=== PATIENT | female | born 1980 | race Caucasian/White ===

== ENCOUNTER 2017-02-23 09:30 | Day surgery (SDC) | payer OTHER ==
[2017-02-22 11:18] VITALS: BMI 28.2
[2017-02-23] MEDS ORDERED: Midazolam HCl 2 mg/2 ml Vial ONE (10:27)
[2017-02-23] MEDS ORDERED: Scopolamine 1.5 mg/72 hour Patch ONE (10:28)
[2017-02-23] MEDS ORDERED: Propofol 200 MG/20 ML VIAL ONE (11:12)
[2017-02-23] MEDS ORDERED: Dexamethasone 20 MG/5 ML VIAL ONE (11:12)
[2017-02-23] MEDS ORDERED: Lidocaine 1% PF 5 ML VIAL ONE (11:12)
[2017-02-23] MEDS ORDERED: Ondansetron HCl/PF 4 MG/2 ML Vial ONE (11:12)
[2017-02-23] MEDS ORDERED: Fentanyl 100 MCG/2 ML VIAL ONE ×2 (11:19→12:48)
[2017-02-23] MEDS ORDERED: Propofol 500 MG/50 ML VIAL ONE (11:19)
[2017-02-23] MEDS ORDERED: Promethazine HCl 25 MG/ML VIAL ONE (12:51)
--- NOTE | 2017-02-23 14:20 | OP ---
DATE OF PROCEDURE: 02/23/2017 SURGEON: Dr. Erasmo Will PREOPERATIVE DIAGNOSES: 1. [place] syndrome and calcified styloid ligament. 2. Chronic tonsillitis. POSTOPERATIVE DIAGNOSES: 1. [place] syndrome and calcified styloid ligament. 2. Chronic tonsillitis. PROCEDURE PERFORMED: 1. Tonsillectomy over 12 years of age. 2. Resection of an excision of left styloid process. PROCEDURE IN DETAIL: After consent was obtained, the patient was identified, brought to the operating room, and placed on the operating table in the supine position. General endotracheal anesthesia and intravenous access was obtained and we proceeded with positioning the patient for oropharyngeal surg el. Oropharyngeal exposure was obtained with a Eriberto-Lyle mouth gag after a head drape was placed and secured with a towel clip. The Eriberto-Lyle mouth gag was then suspended from the [place] tray and p alatal elevation was achieved with a red rubber catheter. The right tonsil was addressed first. We used a curved Allis to grasp the tonsil and retract it medially as an anterior pillar incision was ma de with a #12 blade. The retrotonsillar fascial plane was then established and blunt dissection was performed with the suction cautery. Blood vessels were anticipated, identified, and cauterized as th ey were encountered. Ultimately, dissection was carried to the posterior tonsillar pillar mucosa whi ch was incised hemostatically, as well as the base of tongue connection. The tonsil was then passed off as a specimen and bleeding points within the tonsillar bed were cauterized under direct visualiza tion. We subsequently turned our attention to the contralateral side, where using a similar techniqu e, a near identical procedure was performed. Again, the tonsil was grasped and retracted medially wi th a curved Allis as an anterior pillar incision was made with a #12 blade. The retrotonsillar fasci al plane was established and while the anterior pillar was retracted medially, the hemostatic blunt d issection of the tonsil with a suction cautery was performed with blood vessels anticipated, identifi ed, and cauterized as they were encountered. Again, dissection continued to the base of tongue and p osterior tonsillar pillar mucosa which was incised in a hemostatic fashion. The tonsillar beds were then carefully inspected and bleeding points were identified and cauterized with a suction cautery. After this portion of the procedure, hemostasis was completely obtained. The patient's oral cavity w as copiously irrigated with iced saline and subsequently suctioned. We then used the red rubber cath eter to suction the gastric contents and the patient was subsequently aroused, awakened, and extubate d without difficulty and transported to the recovery room in stable condition. There were no complic ations. Following the tonsillectomy we palpated on the left side, the styloid bone. We then made an incision in the posterior pharyngeal constrictor and dissected down into the submuscular tissues and identifi ed the bone. The styloid ligament was transected from the tip of the bone using a [place] tip elec trocautery. We then freed any attachments muscular and soft tissue attachments to the styloid bone a nd was able to mobilize it from the skull base and delivered into the wound without injuring any seco ndary muscles or nerves or blood vessels. We then closed the posterior pharyngeal musculature after hemostasis was obtained. The patient was awakened and extubated, and taken to recovery where he marlon ined in stable condition prior to discharge home.
[2017-02-23] MEDS ORDERED: Hydrocodone-Acetamin 15 ML UDCUP ONE (14:44)
== END 2017-02-23 16:10 | disposition home or self-care (01) ==
LOC: SDC 09:30
PROVIDERS: ATTEND Specialist
DX: J35.01 Chronic tonsillitis (principal); M85.88 Other specified disorders of bone density and structure, other site; Z91.041 Radiographic dye allergy status; Z87.891 Personal history of nicotine dependence
CPT/HCPCS: 85014; 88304; 88311; 96374; J0131; J1100; J2001; J2250; J2405; J2550; J2704; J3010

== ENCOUNTER 2017-08-22 14:55 | Emergency (ER) | payer OTHER ==
[2017-08-22] MEDS ORDERED: Promethazine HCl 25 MG/ML VIAL ONE (15:17)
[2017-08-22 15:58] LABS: BHCG - Serum Negative (NEGATIVE); Pregs Control Background? CLEAR/WHITE (CLR/WHITE); Pregs Control Bar Appear? YES (CONTROL BAR)
[2017-08-22 16:06] LABS: ALT (SGPT) 18 U/L (8-55); AST (SGOT) 21 U/L (5-34); Albumin 4.2 g/dL (3.5-5.0); Alkaline Phosphatase 104 U/L (40-150); Anion Gap 16 mmol/L (10-20); BUN (Urea Nitrogen) 12 mg/dL (7.0-18.7); Bilirubin, Total 0.6 mg/dL (0.2-1.2); Calc. Creatinine Clearance 0 mL/min (70-130); Calcium 9.6 mg/dL (7.8-10.44); Carbon Dioxide 26 mmol/L (22-29); Chloride 105 mmol/L (98-107); Estimated GFR-MDRD 78; Globulin 3.1 g/dL (2.4-3.5); Glucose 80 mg/dL (70-105); Lipase 19 U/L (8-78); Potassium 3.5 mmol/L (3.5-5.1); Protein, Total 7.3 g/dL (6.0-8.3); Sodium 143 mmol/L (136-145)
[2017-08-22 16:13] LABS: Band 3 % (5-11); Eosinophils 1 % (0-10); Hemoglobin 12.8 g/dL (12.0-16.0); Lymphocytes 26 % (21-51); MDiff Complete? YES; Mean Corpuscular HGB CONC 34.3 g/dL (32.0-36.0); Mean Corpuscular Hemoglobin 30.3 pg (27.0-31.0); Mean Corpuscular Volume 88.2 fL (78.0-98.0); Mean Platelet Volume 6.9 fL (7.4-10.4); Monocytes 7 % (0-10); Neutrophil 61 % (42-75); PLT Morphology Comment Appears Adequate; Platelet Count 260 thou/uL (130-400); RBC Distribution Width 11.3 % (11.5-14.5); RBC Morphology Normal; Red Blood Cell (RBC) Count 4.24 mill/uL (4.20-5.40)
[2017-08-22 16:51] LABS: Bilirubin Negative (Negative); Blood, Urine Negative (Negative); Clarity Clear (Clear); Glucose, Urine (Dipstick) Negative (Negative); Leukocyte Negative (Negative); Nitrite Negative (Negative); Protein, Urine (Dipstick) Negative (Neg-Trace); Urobilinogen 0.2 mg/dL (0.2-1.0)
== END 2017-08-22 17:13 | disposition home or self-care (01) ==
LOC: SCSER 14:55
DX: R11.2 Nausea with vomiting, unspecified (principal); F32.9 Major depressive disorder, single episode, unspecified; Z79.899 Other long term (current) drug therapy
CPT/HCPCS: 80053; 81003; 83690; 84703; 85025; 96365; J2550

== ENCOUNTER 2017-10-26 09:13 | Day surgery (SDC) | payer OTHER ==
[2017-10-25 14:50] VITALS: BMI 28.2
[2017-10-26] MEDS ORDERED: Lidocaine 1% PF 5 ML VIAL ONE (10:24)
[2017-10-26] MEDS ORDERED: PROPOFOL 200 MG/20 ML VIAL ONE (10:24)
[2017-10-26] MEDS ORDERED: ePHEDrine/0.9% NaCl/PF SYRINGE 50 mg/10 ml ONE (10:24)
[2017-10-26] MEDS ORDERED: Ondansetron HCl/PF 4 MG/2 ML Vial ONE (10:24)
[2017-10-26] MEDS ORDERED: Dexamethasone 20 MG/5 ML VIAL ONE (10:24)
[2017-10-26] MEDS ORDERED: Scopolamine 1.5 mg/72 hour Patch ONE (10:24)
[2017-10-26] MEDS ORDERED: CEFAZOLIN/Water 2 GM/20 ML SYRINGE ONE (10:30)
[2017-10-26] MEDS ORDERED: Ketorolac Tromethamine 30 MG/ML VIAL ONE (10:30)
[2017-10-26 10:41] LABS: Hemoglobin 14.2 g/dL (12.0-16.0); Mean Corpuscular HGB CONC 32.9 g/dL (32.0-36.0); Mean Corpuscular Hemoglobin 31.1 pg (27.0-31.0); Mean Corpuscular Volume 94.5 fL (78.0-98.0); Mean Platelet Volume 7.1 fL (7.4-10.4); Platelet Count 262 thou/uL (130-400); RBC Distribution Width 11.2 % (11.5-14.5); Red Blood Cell (RBC) Count 4.58 mill/uL (4.20-5.40); White Blood Cell (WBC) Count 6.4 thou/uL (4.8-10.8)
[2017-10-26 10:56] LABS: BHCG - Serum Negative (NEGATIVE); Pregs Control Background? CLEAR/WHITE (CLR/WHITE); Pregs Control Bar Appear? YES (CONTROL BAR)
[2017-10-26 11:00] LABS: Anion Gap 15 mmol/L (10-20); BUN (Urea Nitrogen) 8 mg/dL (7.0-18.7); Calc. Creatinine Clearance 103 mL/min (70-130); Calcium 9.4 mg/dL (7.8-10.44); Carbon Dioxide 21 mmol/L (22-29); Chloride 107 mmol/L (98-107); Estimated GFR-MDRD 68; Glucose 84 mg/dL (70-105); Potassium 4.5 mmol/L (3.5-5.1); Sodium 138 mmol/L (136-145)
[2017-10-26] MEDS ORDERED: Lidocaine 2% Jelly 5 ML TUBE ONE (12:13)
[2017-10-26] MEDS ORDERED: Bupivacaine/Epinephrine 0.25% 30 ML VIAL ONE (12:13)
[2017-10-26] MEDS ORDERED: Midazolam HCl 2 mg/2 ml Vial ONE (12:17)
[2017-10-26] MEDS ORDERED: Fentanyl 100 MCG/2 ML VIAL ONE (12:19)
--- NOTE | 2017-10-27 14:11 | OP ---
DATE OF PROCEDURE: 10/26/2017 PREOPERATIVE DIAGNOSIS: Atypical 2.5 cm cystic lesion of left buttock. POSTOPERATIVE DIAGNOSIS: Atypical 2.5 cm cystic lesion of left buttock. PROCEDURE PERFORMED: Excision of 2.5 cm left buttock cyst with layered closure. SURGEON: Thiago Mabry M.D. ANESTHESIA: General with laryngeal mask airway. INDICATIONS: The patient is a 37-year-old white female. She presented with a persistent lesion on h er medial left buttock (several centimeters away from the anus and not apparently connected), which h as drained bloody material and become very painful on multiple occasions over the past several months . I recommend excision of this. DESCRIPTION OF OPERATION: Informed consent was obtained. The patient was taken to the operating steve m where general anesthesia obtained with the patient in supine position. She was then placed in dors al lithotomy position. The perineal and left buttocks area were prepped with Betadine and draped in sterile fashion. The ar ea was marked by visualization and palpation prior to infiltrating local anesthetic. I utilized 0.25 % with epinephrine. An elliptical vertical incision was created. Dissection was carried through ski n and subcutaneous tissue, ensuring the dissection was only within normal surrounding tissue. This s pecimen was removed and passed off the field. Hemostasis obtained with electrocautery. The wound wa s then closed in layers with 3-0 Vicryl and 3-0 Prolene. I applied Dermabond over the Prolene to hop efully seal this secondary to its proximity to the anus. Patient tolerated the procedure well and wa s taken to recovery room in stable condition.
--- NOTE | 2017-11-06 06:06 | PQF ---
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 Check the appropriate box and include in your discharge summary/addendum. [x ] ___I dictated an addendum with the lesion measurements [ ] [ ] Please check this box if this does not apply to this patient [ ] Unable to determine [ ] Other diagnosis/procedure: Review the following information and exercise your independent professional judgment in responding to the clarification. Based upon the clinical findings, risk factors, and treatment, please clarify if you are treating one of the above probable or suspected diagnoses. Physician Signature: MWS Date 11/06/17 Time MTDD
--- NOTE | 2017-11-06 09:06 | ADD-OP ---
ADDENDUM: DATE OF PROCEDURE: 10/26/2017 PRE AND POSTOPERATIVE DIAGNOSIS AND PROCEDURE: Unchanged. 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 The lesion was excised at about 2 cm transverse with about 1 mm ma rgins; therefore making about a 2.2 cm area of transverse excision. It was longer in the vertical di mension. The remainder of the operative report is unchanged.
== END 2017-10-26 15:35 | disposition home or self-care (01) ==
LOC: SDC 09:13
PROVIDERS: ATTEND Specialist
PROC: 0JB90ZZ Excision of Buttock Subcutaneous Tissue and Fascia, Open Approach (ICD-10-PCS; principal; 2017-10-26)
DX: L72.0 Epidermal cyst (principal); Z87.891 Personal history of nicotine dependence; Z79.899 Other long term (current) drug therapy; Z91.041 Radiographic dye allergy status
CPT/HCPCS: 36415; 80048; 84703; 85027; 88304; J0131; J1100; J1885; J2001; J2250; J2405; J2704; J3010

== ENCOUNTER 2018-04-02 15:44 | Outpatient (CLI) | payer OTHER ==
--- NOTE | 2018-04-12 08:57 | MMO ---
Bilateral MAMMO Bilat Screen [facility]. CLINICAL HISTORY: Patient is 37 years old and is seen for screening. The patient has the following family history of breast cancer: paternal grandmother. The patient has no personal history of cancer. VIEWS: The views performed were: bilateral craniocaudal and bilateral mediolateral oblique. FILMS COMPARED: The present examination has been compared to prior imaging studies performed at [facility] on 02/15/2006 and 02/24/2010. MAMMOGRAM FINDINGS: There are scattered fibroglandular densities. There are no suspicious masses, calcifications or areas of architectural distortion. IMPRESSION: THERE IS NO MAMMOGRAPHIC EVIDENCE OF MALIGNANCY. A ROUTINE FOLLOW-UP MAMMOGRAM IN 1 YEAR IS RECOMMENDED. THE RESULTS OF THIS EXAM WERE SENT TO THE PATIENT. ACR BI-RADS Category 1 - Negative MAMMOGRAPHY NOTE: 1. A negative mammogram report should not delay a biopsy if a dominant of clinically suspicious mass is present. 2. Approximately 10% to 15% of breast cancers are not detected by mammography. 3. Adenosis and dense breasts may obscure an underlying neoplasm.
== END 2018-04-02 15:45 | disposition home or self-care (01) ==
LOC: BICMAMMO 15:44
PROVIDERS: ATTEND Obstetrics & Gynecology
DX: Z12.31 Encounter for screening mammogram for malignant neoplasm of breast (principal); Z80.3 Family history of malignant neoplasm of breast
CPT/HCPCS: 77063; 77067

== ENCOUNTER 2018-07-27 08:31 | Outpatient (CLI) | payer OTHER ==
--- NOTE | 2018-07-27 11:15 | MRI ---
MRI RIGHT KNEE PERFORMED WITHOUT CONTRAST ENHANCEMENT: HISTORY: Right knee pain. FINDINGS: The anterior and posterior cruciate ligaments are intact. The medial and lateral menisci are normal in shape and appearance. The medial and lateral collateral ligaments and the iliotibial band regions appear unremarkable. Patellar articular cartilage is intact. The medial and lateral patellar retinaculum and the quadrice ps and patellar tendons are normal in appearance. No articular cartilage abnormalities. IMPRESSION: Unremarkable MRI of the right knee. POS: [facility]
== END 2018-07-27 08:32 | disposition home or self-care (01) ==
LOC: SCSMRI 08:31
PROVIDERS: ATTEND Orthopaedic Surgery
DX: M23.91 Unspecified internal derangement of right knee (principal)

== ENCOUNTER 2019-02-19 13:53 | Outpatient (CLI) | payer OTHER | END 2019-02-19 13:54 | disposition home or self-care (01) | LOC: DTY/OP 13:53 | PROVIDERS: ATTEND Surgery | DX: E66.01 Morbid (severe) obesity due to excess calories (principal) | CPT/HCPCS: 97802 ==

== ENCOUNTER 2019-03-12 08:52 | Inpatient (IN) | payer OTHER ==
[2019-03-11 08:47] VITALS: BMI 32.3
[2019-03-12] MEDS ORDERED: Heparin 5,000 UNITS/ML VIAL ONE (09:37)
[2019-03-12] MEDS ORDERED: Dexmedetomidine 200 MCG/2 ML VIAL ONE (10:38)
[2019-03-12] MEDS ORDERED: Fentanyl 250 MCG/5 ML VIAL ONE (10:38)
[2019-03-12] MEDS ORDERED: Midazolam HCl 2 mg/2 ml Vial ONE (10:49)
[2019-03-12] MEDS ORDERED: Scopolamine 1.5 mg/72 hour Patch ONE (10:49)
[2019-03-12] MEDS ORDERED: EPINEPHrine 1 MG/ML AMP ONE (11:10)
[2019-03-12] MEDS ORDERED: Bupivacaine 0.25% HCL 30 ML VIAL ONE (11:10)
[2019-03-12] MEDS ORDERED: SUGAMMADEX SODIUM 200 MG/2 ML VIAL ONE (11:19)
[2019-03-12] MEDS ORDERED: Promethazine HCl 25 MG/ML VIAL SLOW IVP PRN ×2 (11:47→16:12)
[2019-03-12] MEDS ORDERED: Ondansetron HCl/PF 4 MG/2 ML Vial IVP PRN (11:47)
[2019-03-12] MEDS ORDERED: Meperidine HCl/PF 25 MG/ML VIAL SLOW IVP PRN (11:47)
[2019-03-12] MEDS ORDERED: HYDROmorphone 2 MG/ML VIAL SLOW IVP PRN (11:47)
[2019-03-12] MEDS ORDERED: diphenhydrAMINE 50 MG/ML VIAL IVP PRN ×2 (12:49→13:29)
[2019-03-12] MEDS ORDERED: Ondansetron PF 4 MG/2 ML Vial IVP PRN ×2 (12:49→18:32)
[2019-03-12] MEDS ORDERED: hydrALAZINE 20 MG/ML VIAL SLOW IVP PRN (12:49)
[2019-03-12] MEDS ORDERED: Dextrose 50% Abboject 50 ML SYRINGE SLOW IVP PRN (12:49)
[2019-03-12] MEDS ORDERED: Promethazine HCl 25 MG/ML VIAL IM PRN ×2 (12:49→13:29)
[2019-03-12] MEDS ORDERED: Hydrocodone-Acetamin 15 ML UDCUP PO PRN ×2 (12:49→13:33)
[2019-03-12] MEDS ORDERED: Dextrose 5% in Water 1,000 ML IV PRN (12:49)
[2019-03-12] MEDS ORDERED: Sodium Chloride 0.9% (PF) 10 ML VIAL FS PRN (13:03)
[2019-03-12] MEDS ORDERED: fentaNYL Citrate/PF 2,000 MCG in Sodium Chloride 0.9% 60 ML IV PRN (13:29)
[2019-03-12] MEDS ORDERED: diphenhydrAMINE 50 MG/ML VIAL IM PRN (13:29)
[2019-03-12] MEDS ORDERED: Zolpidem Tartrate 5 MG TAB PO PRN (13:29)
[2019-03-12] MEDS ORDERED: Naloxone HCl 0.4 mg/ml Vial IV PRN (13:29)
[2019-03-12] MEDS ORDERED: diphenhydrAMINE 25 MG CAP PO PRN (13:29)
[2019-03-12] MEDS ORDERED: Ketorolac Tromethamine 30 MG/ML VIAL ONE (13:30)
[2019-03-12] MEDS ORDERED: Ondansetron PF 4 MG/2 ML Vial ONE ×2 (13:30→14:10)
[2019-03-12] MEDS ORDERED: Lidocaine 1% PF 5 ML VIAL ONE (13:30)
[2019-03-12] MEDS ORDERED: Rocuronium Bromide 10 MG/ML (10ML VIAL) ONE (13:30)
[2019-03-12] MEDS ORDERED: Dexamethasone 20 MG/5 ML VIAL ONE (13:30)
[2019-03-12] MEDS ORDERED: Communication Order-Pharmacy FS SCH (13:30)
[2019-03-12] MEDS ORDERED: PROPOFOL 200 MG/20 ML VIAL ONE (13:30)
[2019-03-12] MEDS ORDERED: Fentanyl 100 MCG/2 ML VIAL ONE (13:31)
[2019-03-12] MEDS ORDERED: Promethazine HCl 25 MG/ML VIAL ONE (13:59)
[2019-03-12] MEDS ORDERED: Promethazine HCl 12.5 MG in Sodium Chloride 0.9% 50 ML IVPB PRN (16:40)
[2019-03-12] MEDS: D5 1/2 NS w/20 mEq KCL 1,000 ML IV SCH ×2 (17:16→21:33)
[2019-03-12] MEDS: CEFAZOLIN 2 GM in Premix Bag 1 BAG IVPB SCH (17:57)
[2019-03-12] MEDS: Ketorolac Tromethamine 30 MG/ML VIAL IVP SCH ×2 (17:58→23:38)
[2019-03-12] MEDS ORDERED: Multivit, Adult Inj 10 ML VIAL IV SCH (18:45)
[2019-03-12] MEDS ORDERED: Sodium Chloride 0.9% 1,000 ML IV SCH (19:15)
[2019-03-12] MEDS ORDERED: Multivitamins, Adult 10 ML in Sodium Chloride 0.9% 500 ML IV SCH (20:00)
[2019-03-12] MEDS: Ondansetron PF 4 MG/2 ML Vial IVP PRN (20:43)
[2019-03-12] MEDS: Metoclopramide HCl 10 MG/2 ML VIAL IVP PRN (20:43)
[2019-03-13] MEDS: CEFAZOLIN 2 GM in Premix Bag 1 BAG IVPB SCH (01:46)
[2019-03-13] MEDS: D5 1/2 NS w/20 mEq KCL 1,000 ML IV SCH (05:21)
[2019-03-13] MEDS: Ketorolac Tromethamine 30 MG/ML VIAL IVP SCH ×2 (05:21→11:37)
[2019-03-13] MEDS: Metoclopramide HCl 10 MG/2 ML VIAL IVP PRN (05:26)
[2019-03-13] MEDS: Ondansetron PF 4 MG/2 ML Vial IVP PRN (05:26)
[2019-03-13 05:55] LABS: Anion Gap 11 mmol/L (10-20); BUN (Urea Nitrogen) 8 mg/dL (7.0-18.7); Calc. Creatinine Clearance 145 mL/min (70-130); Calcium 7.7 mg/dL (7.8-10.44); Carbon Dioxide 18 mmol/L (22-29); Chloride 111 mmol/L (98-107); Estimated GFR-MDRD 87; Glucose 105 mg/dL (70-105); Potassium 4.1 mmol/L (3.5-5.1); Sodium 136 mmol/L (136-145)
[2019-03-13 06:07] LABS: #Eosinphils 0.1 thou/uL (0.0-0.7); #Lymphocytes 1.8 thou/uL (1.20-3.40); #Monocytes 0.9 thou/uL (0.11-0.59); #Neutrophils 11.1 thou/uL (1.40-6.50); %Basophils 0.1 % (0.0-1.0); %Eosinophils 0.4 % (0.0-10.0); %Monocytes 6.7 % (0.0-10.0); %Neutrophils 79.9 % (42.0-75.0); Hemoglobin 12.7 g/dL (12.0-16.0); Mean Corpuscular HGB CONC 32.6 g/dL (32.0-36.0); Mean Platelet Volume 8.1 fL (7.4-10.4); Platelet Count 208 thou/uL (130-400); RBC Distribution Width 11.9 % (11.5-14.5); RBC Morphology Normal; Red Blood Cell (RBC) Count 3.98 mill/uL (4.20-5.40); White Blood Cell (WBC) Count 13.9 thou/uL (4.8-10.8)
--- NOTE | 2019-03-13 06:56 | PDOC.GSPN ---
Surgery Progress Note: Subj - Subjective Patient reports: pain well controlled, nausea (No vomiting. Nausea was better controlled last night with Zofran and Reglan.) Narrative: Mrs. Hicks is a 38 year old female, one day post-op from gastric sleeve. She was asleep upon entry. Surgery Progress Note: Obj - Vital signs Vital signs: Vital Signs - Most Recent Temp Pulse Resp BP Pulse Ox 98.3 F 72 18 111/72 95 03/13/19 03:34 03/13/19 03:34 03/13/19 03:34 03/13/19 03:34 03/13/19 03:34 - Physical Exam General: well developed, well nourished Cardiovascular: regular rate and rhythm Respiratory: normal expansion, normal respiratory effort Surgery Progress Note: Results - Labs Result Diagrams: 03/13/19 05:24 03/13/19 05:24 Lab results: Laboratory Results - last 24 hr 03/13/19 03/13/19 05:24 05:24 WBC 13.9 H RBC 3.98 L Hgb 12.7 Hct 39.0 MCV 98.0 MCH 32.0 H MCHC 32.6 RDW 11.9 Plt Count 208 MPV 8.1 Neutrophils % 79.9 H Lymphocytes % 13.0 L Monocytes % 6.7 Eosinophils % 0.4 Basophils % 0.1 Neutrophils # 11.1 H Lymphocytes # 1.8 Monocytes # 0.9 H Eosinophils # 0.1 Basophils # 0.0 RBC Morph Comment Normal Sodium 136 Potassium 4.1 Chloride 111 H Carbon Dioxide 18 L Anion Gap 11 BUN 8 Creatinine 0.74 Estimated GFR (MDRD) 87 Glucose 105 Calcium 7.7 L Surgery Progress Note: A/P - Plan Plan: Pt appears stable and improving. Pain well controlled. Give Zonfran and Reglan for nausea. Continue monitoring heart and respiratory wait. Encourage patient to walk more.
--- NOTE | 2019-03-13 08:16 | RAD ---
XR UGI Single Contrast No Air HISTORY: Status post vertical sleeve gastrectomy Post bariatric surgery evaluation Procedure: Single sip swallow study was performed with administration of 15 mL contrast under fluoros copy. FINDINGS: Contrast traverses the gastroesophageal junction. No leak or evidence of obstruction. IMPRESSION: Normal study.
[2019-03-13] MEDS ORDERED: Pantoprazole 40 MG VIAL IVP SCH (09:00)
[2019-03-13] MEDS ORDERED: Enoxaparin Sodium 40 MG/0.4 ML SYRINGE SC SCH (09:00)
--- NOTE | 2019-03-13 09:29 | OP ---
DATE OF PROCEDURE: 03/12/2019 PREOPERATIVE DIAGNOSIS: Morbid obesity. PROCEDURE PERFORMED: Laparoscopic sleeve gastrectomy with esophagogastroscopy. INDICATIONS: A 38-year-old female who has been overweight for many years, attempted multiple weight loss programs without success. FINDINGS: A 38-Luxembourger bougie used. DESCRIPTION OF PROCEDURE: After informed consent was obtained, the patient was taken to the operating room and given general endotracheal anesthesia and placed in supine position. The abdomen was prepped and draped in usual fashion. Local anesthesia was infiltrated subcutaneously and deep. A 12 mm incision was performed approximately 8 inches below the xiphoid slightly to the left. Veress needle was inserted. Drop test was performed. Pneumoperitoneum was created to a pressure of 15 mmHg. 0-degree laparoscope was inserted under direct vision. Jw liver retractor was inserted. Left lobe of the liver retracted superiorly. The pylorus was identified. A 12-mm port was placed on the right beneath it and two 12s placed left subcostal. The omentum was taken off the greater curvature, 5 cm from the pylorus utilizing the LigaSure. Short gastrics divided with LigaSure, and left crura defined with the LigaSure. A 38-Luxembourger bougie inserted, directed into the antrum. The linear 60 mm green load stapler was used to divide the antrum to the bougie, gold load along the bougie, and a series of blues through the angle of His. Intraoperative endoscopy was performed. The video endoscope was inserted under direct vision and advanced into the sleeve. The staple line was inspected. There was no bleeding. Staple line was then tested by inflating the new stomach with pressurized air under water. There was no air leak. Stomach decompressed. Scope removed. The remnant stomach was removed from the abdomen through the left lateral port site. Fascia was closed with 0 Vicryl suture and the GraNee needle. Trocars and retractors were removed. Hemostasis was assured. Skin was closed with interrupted 4-0 Rapide. Dermabond applied. The patient tolerated the procedure well, transferred to Recovery in good condition. Sponge and needle count verified correct x2. Job ID: [id number]
[2019-03-13] MEDS ORDERED: Hydrocodone-Acetamin 15 ML UDCUP PO PRN (11:16)
--- NOTE | 2019-03-13 11:52 | DIS ---
DATE OF ADMISSION: 03/12/2019 DATE OF DISCHARGE: 03/13/2019 DISCHARGE DIAGNOSIS: Morbid obesity. PROCEDURES DURING ADMISSION: 1. Laparoscopic sleeve gastrectomy. 2. Intraoperative esophagogastroscopy. 3. Postoperative Gastrografin swallow. HOSPITAL COURSE: The patient was admitted, taken to the operating room, where she underwent sleeve gastrectomy. She had excruciating nausea and dry heaves postoperatively despite all antiemetics we could find. Eventually that resolved. This morning, she had a Gastrografin swallow, which was fine. She is tolerating liquids well. She is discharged home on hydrocodone and Zofran. She will follow up with me in 2 weeks. Job ID: [id number]
[2019-03-13 12:14] VITALS: BP 115/69; TEMP 98.4
[2019-03-13] MEDS ORDERED: GASTROGRAFIN 30 ML BOT ONE (13:02)
== END 2019-03-13 14:05 | disposition home or self-care (01) | DRG 621 ==
LOC: SURG A 08:52
PROVIDERS: ADMIT Surgery; ATTEND Surgery
PROC: 0DB64Z3 Excision of Stomach, Percutaneous Endoscopic Approach, Vertical (ICD-10-PCS; principal; 2019-03-12)
PROC: 0DJ08ZZ Inspection of Upper Intestinal Tract, Via Natural or Artificial Opening Endoscopic (ICD-10-PCS; 2019-03-12)
DX: E66.01 Morbid (severe) obesity due to excess calories (principal); Z68.32 Body mass index [BMI] 32.0-32.9, adult; Z90.89 Acquired absence of other organs; Z87.891 Personal history of nicotine dependence; F32.9 Major depressive disorder, single episode, unspecified; F41.9 Anxiety disorder, unspecified
CPT/HCPCS: 36415; 74240; 80048; 85025; 88307; 88312; 94760; C9113; J0171; J0690; J1100; J1644; J1650; J1885; J2001; J2250; J2405; J2550; J2704; J2765; J3010; J7050; Q9963; S0020

== ENCOUNTER 2019-04-03 09:41 | Outpatient (CLI) | payer OTHER ==
--- NOTE | 2019-04-03 11:39 | MMO ---
Bilateral MAMMO Bilat Screen [facility]. CLINICAL HISTORY: Patient is 38 years old and is seen for screening. The patient has the following family history of breast cancer: paternal grandmother. The patient has no personal history of cancer. VIEWS: The views performed were: bilateral craniocaudal with tomosynthesis and bilateral mediolateral oblique with tomosynthesis. FILMS COMPARED: The present examination has been compared to prior imaging studies performed at [facility] on 04/02/2018, and at [facility] on 02/15/2006 and 02/24/2010. This study has been interpreted with the assistance of computer-aided detection. MAMMOGRAM FINDINGS: There are scattered fibroglandular densities. There are no suspicious masses, suspicious calcifications, or new areas of architectural distortion. IMPRESSION: THERE IS NO MAMMOGRAPHIC EVIDENCE OF MALIGNANCY. A ROUTINE FOLLOW-UP MAMMOGRAM IN 1 YEAR IS RECOMMENDED. THE RESULTS OF THIS EXAM WERE SENT TO THE PATIENT. ACR BI-RADS Category 1 - Negative MAMMOGRAPHY NOTE: 1. A negative mammogram report should not delay a biopsy if a dominant of clinically suspicious mass is present. 2. Approximately 10% to 15% of breast cancers are not detected by mammography. 3. Adenosis and dense breasts may obscure an underlying neoplasm. Reported by: SHASHANK MICHAEL MD Electonically Signed: [id number]
== END 2019-04-03 09:42 | disposition home or self-care (01) ==
LOC: BICMAMMO 09:41
PROVIDERS: ATTEND Obstetrics & Gynecology
DX: Z12.31 Encounter for screening mammogram for malignant neoplasm of breast (principal); Z80.3 Family history of malignant neoplasm of breast
CPT/HCPCS: 77063; 77067

== ENCOUNTER 2019-08-02 14:36 | Emergency (ER) | payer OTHER ==
[2019-08-02 15:08] LABS: #Basophils 0.1 thou/uL (0.0-0.2); #Eosinphils 0.1 thou/uL (0.0-0.7); #Monocytes 0.5 thou/uL (0.11-0.59); #Neutrophils 4.1 thou/uL (1.40-6.50); %Basophils 1.8 % (0.0-1.0); %Eosinophils 0.7 % (0.0-10.0); %Lymphocytes 38.4 % (21.0-51.0); %Monocytes 6.3 % (0.0-10.0); %Neutrophils 52.7 % (42.0-75.0); Hemoglobin 14.3 g/dL (12.0-16.0); Mean Corpuscular HGB CONC 32.8 g/dL (32.0-36.0); Mean Corpuscular Hemoglobin 31.4 pg (27.0-31.0); Mean Corpuscular Volume 95.5 fL (78.0-98.0); Mean Platelet Volume 8.7 fL (7.4-10.4); Platelet Count 274 thou/uL (130-400); RBC Distribution Width 12.2 % (11.5-14.5); Red Blood Cell (RBC) Count 4.56 mill/uL (4.20-5.40); White Blood Cell (WBC) Count 7.9 thou/uL (4.8-10.8)
[2019-08-02 15:24] LABS: BHCG - Serum Negative (NEGATIVE); Pregs Control Background? CLEAR/WHITE (CLR/WHITE); Pregs Control Bar Appear? YES (CONTROL BAR)
[2019-08-02 15:32] LABS: ALT (SGPT) 17 U/L (8-55); AST (SGOT) 22 U/L (5-34); Albumin 4.5 g/dL (3.5-5.0); Alkaline Phosphatase 86 U/L (40-110); Anion Gap 14 mmol/L (10-20); BUN (Urea Nitrogen) 9 mg/dL (7.0-18.7); Bilirubin, Total 0.3 mg/dL (0.2-1.2); Calc. Creatinine Clearance 0 mL/min (70-130); Calcium 9.6 mg/dL (7.8-10.44); Carbon Dioxide 27 mmol/L (22-29); Chloride 102 mmol/L (98-107); Estimated GFR-MDRD 74; Globulin 3.4 g/dL (2.4-3.5); Glucose 89 mg/dL (70-105); Lipase 31 U/L (8-78); Potassium 3.9 mmol/L (3.5-5.1); Protein, Total 7.9 g/dL (6.0-8.3); Sodium 139 mmol/L (136-145)
[2019-08-02] MEDS ORDERED: Ondansetron PF 4 MG/2 ML Vial ONE (16:10)
[2019-08-02] MEDS ORDERED: Morphine 4 MG/ML VIAL ONE ×2 (16:10→18:09)
[2019-08-02] MEDS ORDERED: Ketorolac Tromethamine 30 MG/ML VIAL ONE (16:10)
--- NOTE | 2019-08-02 16:59 | ULT ---
PELVIC ULTRASOUND: 08/02/19 Transabdominal and endovaginal ultrasound of pelvis performed. INDICATIONS: Pelvic pain. Clinical question of left ovarian torsion. FINDINGS: Uterus has a normal sonographic appearance. The endometrium is normal thickness at 5 to 6 mm. Both ovaries are identified and have symmetric size with normal appearing follicles. A follicular cys t on the left ovary measures up to 1.5 to 1.8 cm. Color Doppler and spectral analysis demonstrates blood flow to both ovaries. There is no free fluid. IMPRESSION: Unremarkable pelvic ultrasound. POS: [facility]
--- NOTE | 2019-08-02 18:25 | CT ---
CT OF THE ABDOMEN AND PELVIS WITHOUT IV CONTRAST INDICATION: Left lower quadrant abdominal pain COMPARISON: July 11, 2019 CT the abdomen and pelvis FINDINGS: The lack of IV contrast limits evaluation of the solid organs of the abdomen and pelvis. ABDOMEN: Lung bases: Clear Liver: Small hypodensities most consistent with cysts within the right hepatic lobe are stable. Gallbladder: Normal appearing. Pancreas: Normal. Adrenal glands: Normal. Spleen: Small calcifications in the spleen are stable. Kidneys and ureters: Left renal hypodensities and left nephrolithiasis are similar appearing. No uret eral calculus or hydronephrosis is evident. Right nephrolithiasis is similar appearing. Vasculature: Normal. Lymph nodes:No lymphadenopathy. Free fluid in abdomen:No free fluid is evident. PELVIS: Small and large bowel: Normal Appendix:Normal Bladder: Normal. Rectal and perirectal soft tissues:Normal. Reproductive structures: Normal. Free fluid in pelvis: Mild free fluid in the pelvis Lymphadenopathy pelvis: No lymphadenopathy is evident. Osseous structures: No acute osseous abnormality. No destructive osteolytic or osteoblastic lesion i s identified. Soft tissues:Normal. IMPRESSION: 1. No definite CT explanation for the patient's left lower quadrant abdominal pain. 2. Mild free fluid in the pelvis may be physiologic in nature. 3. Chronic findings as above
[2019-08-02] MEDS ORDERED: Glycopyrrolate 0.2 MG/ML 5 ML SYRINGE SLOW IVP SCH (19:00)
[2019-08-02 19:13] LABS: Bacteria/HPF Rare-Few HPF (None Seen); Bilirubin Negative (Negative); Blood, Urine Negative (Negative); Clarity Clear (Clear); Glucose, Urine (Dipstick) Normal (Negative); Leukocyte 75 Leu/uL (Negative); Mucous/LPF Rare LPF (<2+); Nitrite Negative (Negative); Protein, Urine (Dipstick) 20 mg/dL (Neg-Trace); RBC/HPF 0-3 HPF (0-3); WBC/HPF 0-3 HPF (0-3)
== END 2019-08-02 20:00 | disposition home or self-care (01) ==
LOC: ERS 14:36
DX: R10.9 Unspecified abdominal pain (principal); R10.814 Left lower quadrant abdominal tenderness; R10.2 Pelvic and perineal pain; F32.9 Major depressive disorder, single episode, unspecified; Z87.891 Personal history of nicotine dependence
CPT/HCPCS: 36415; 74176; 76856; 80053; 81003; 81015; 83605; 83690; 84703; 85025; 96374; 96375; J1885; J2270; J2405

== ENCOUNTER 2022-05-23 15:50 | Outpatient (CLI) | payer BC | END 2022-05-23 15:51 | disposition home or self-care (01) | LOC: ULT 15:50 | PROVIDERS: ATTEND Internal Medicine | DX: N39.0 Urinary tract infection, site not specified (principal); N28.1 Cyst of kidney, acquired | CPT/HCPCS: 76770 ==